=== PATIENT | female | born 1995 | race Caucasian/White ===

== ENCOUNTER 2018-07-02 16:52 | Emergency (ER) | payer SELFPAY ==
[2018-07-02 17:21] LABS: #Basophils 0.1 thou/uL (0.0-0.2); #Eosinphils 0.1 thou/uL (0.0-0.7); #Lymphocytes 2.9 thou/uL (1.20-3.40); #Monocytes 0.3 thou/uL (0.11-0.59); #Neutrophils 4.4 thou/uL (1.40-6.50); %Basophils 0.9 % (0.0-1.0); %Eosinophils 0.8 % (0.0-10.0); %Lymphocytes 37.9 % (21.0-51.0); %Neutrophils 56.4 % (42.0-75.0); Hemoglobin 12.9 g/dL (12.0-16.0); Mean Corpuscular HGB CONC 34.2 g/dL (32.0-36.0); Mean Corpuscular Volume 90.8 fL (78.0-98.0); Mean Platelet Volume 8.3 fL (7.4-10.4); Platelet Count 309 thou/uL (130-400); RBC Distribution Width 12.4 % (11.5-14.5); Red Blood Cell (RBC) Count 4.15 mill/uL (4.20-5.40); White Blood Cell (WBC) Count 7.8 thou/uL (4.8-10.8)
[2018-07-02 17:35] LABS: ALT (SGPT) 15 U/L (8-55); AST (SGOT) 18 U/L (5-34); Albumin 4.8 g/dL (3.5-5.0); Alkaline Phosphatase 57 U/L (40-150); Anion Gap 14 mmol/L (10-20); BUN (Urea Nitrogen) 9 mg/dL (7.0-18.7); Bilirubin, Total 0.6 mg/dL (0.2-1.2); Calc. Creatinine Clearance 0 mL/min (70-130); Calcium 10.1 mg/dL (7.8-10.44); Carbon Dioxide 22 mmol/L (22-29); Chloride 106 mmol/L (98-107); Estimated GFR-MDRD Greater than 90; Glucose 100 mg/dL (70-105); Potassium 3.8 mmol/L (3.5-5.1); Protein, Total 7.8 g/dL (6.0-8.3); Sodium 138 mmol/L (136-145)
--- NOTE | 2018-07-02 19:42 | RAD ---
PORTABLE CHEST: 07/02/18 An AP portable film at 1652 is compared with a 02/08/18 study. There has been no adverse interval tristen nge. The heart is normal in size and the lungs are clear. No infiltrate or effusion was seen. There i s no vascular congestion or edema. IMPRESSION: No acute thoracic finding. POS: HOME
== END 2018-07-02 17:50 | disposition home or self-care (01) ==
LOC: BURERS 16:52
DX: R07.9 Chest pain, unspecified (principal); I10 Essential (primary) hypertension
CPT/HCPCS: 71045; 80053; 84484; 85025; 85379; 93005

== ENCOUNTER 2018-11-19 10:13 | Emergency (ER) | payer SELFPAY ==
[2018-11-19] MEDS ORDERED: Famotidine In NaCl 20 mg/50 ml Premix Bag ONE (10:48)
[2018-11-19] MEDS ORDERED: Mag-Al Plus 1200 MG/1200 MG/120 MG/30 ML UDCUP ONE (10:48)
[2018-11-19] MEDS ORDERED: Lidocaine Viscous Sol 2% 15 ml UD Cup ONE (10:48)
[2018-11-19] MEDS ORDERED: Famotidine 20 MG TAB ONE (10:51)
[2018-11-19 10:52] LABS: #Eosinphils 0.1 thou/uL (0.0-0.7); #Lymphocytes 1.5 thou/uL (1.20-3.40); #Monocytes 0.2 thou/uL (0.11-0.59); #Neutrophils 4.4 thou/uL (1.40-6.50); %Basophils 0.8 % (0.0-1.0); %Eosinophils 0.9 % (0.0-10.0); %Lymphocytes 23.7 % (21.0-51.0); %Monocytes 3.9 % (0.0-10.0); %Neutrophils 70.7 % (42.0-75.0); Hemoglobin 13.6 g/dL (12.0-16.0); Mean Corpuscular HGB CONC 32.1 g/dL (32.0-36.0); Mean Corpuscular Hemoglobin 29.2 pg (27.0-31.0); Mean Platelet Volume 8.2 fL (7.4-10.4); Platelet Count 265 thou/uL (130-400); RBC Distribution Width 12.4 % (11.5-14.5); Red Blood Cell (RBC) Count 4.65 mill/uL (4.20-5.40); White Blood Cell (WBC) Count 6.2 thou/uL (4.8-10.8)
[2018-11-19 11:08] LABS: ALT (SGPT) 13 U/L (8-55); AST (SGOT) 14 U/L (5-34); Albumin 4.9 g/dL (3.5-5.0); Alkaline Phosphatase 55 U/L (40-150); Anion Gap 14 mmol/L (10-20); BUN (Urea Nitrogen) 7 mg/dL (7.0-18.7); Bilirubin, Total 0.8 mg/dL (0.2-1.2); Calc. Creatinine Clearance 0 mL/min (70-130); Carbon Dioxide 24 mmol/L (22-29); Chloride 105 mmol/L (98-107); Estimated GFR-MDRD 80; Globulin 2.8 g/dL (2.4-3.5); Glucose 109 mg/dL (70-105); Lipase 30 U/L (8-78); Potassium 3.8 mmol/L (3.5-5.1); Protein, Total 7.7 g/dL (6.0-8.3); Sodium 139 mmol/L (136-145)
== END 2018-11-19 11:20 | disposition home or self-care (01) ==
LOC: BURERS 10:13
DX: K29.70 Gastritis, unspecified, without bleeding (principal); I10 Essential (primary) hypertension; J45.909 Unspecified asthma, uncomplicated
CPT/HCPCS: 80053; 83690; 84484; 85025; 93005

== ENCOUNTER 2022-04-20 15:35 | Outpatient (CLI) | payer OTHER | END 2022-04-20 15:36 | disposition home or self-care (01) | LOC: BURRAD 15:35 | PROVIDERS: ATTEND Nurse Practitioner Family | DX: S39.012A Strain of muscle, fascia and tendon of lower back, initial encounter (principal) | CPT/HCPCS: 72110 ==

== ENCOUNTER 2023-10-25 18:10 | Emergency (ER) | payer BC ==
[2023-10-25 18:35] LABS: #Basophils 0.1 thou/uL (0.0-0.2); #Eosinphils 0.1 thou/uL (0.0-0.7); #Lymphocytes 1.2 thou/uL (1.20-3.40); #Monocytes 0.3 thou/uL (0.11-0.59); #Neutrophils 3.4 thou/uL (1.40-6.50); %Basophils 1.4 % (0.0-1.0); %Eosinophils 1.3 % (0.0-10.0); %Lymphocytes 24.4 % (21.0-51.0); %Monocytes 5.1 % (0.0-10.0); %Neutrophils 67.8 % (42.0-75.0); Hematocrit 40.9 % (36.0-47.0); Hemoglobin 13.7 g/dL (12.0-16.0); Mean Corpuscular HGB CONC 33.6 g/dL (32.0-36.0); Mean Corpuscular Hemoglobin 30.4 pg (27.0-31.0); Mean Corpuscular Volume 90.5 fl (78.0-98.0); Mean Platelet Volume 8.1 fL (7.4-10.4); Platelet Count 254 10x3/uL (130-400); RBC Distribution Width 11.3 % (11.5-14.5); Red Blood Cell (RBC) Count 4.52 mill/uL (4.20-5.40); White Blood Cell (WBC) Count 5.1 10x3/uL (4.8-10.8)
[2023-10-25] MEDS ORDERED: Metoclopramide HCl 10 MG (2 mL) VIAL ONE (18:40)
[2023-10-25] MEDS ORDERED: diphenhydrAMINE 50 MG/ML VIAL ONE (18:40)
[2023-10-25] MEDS ORDERED: Sodium Chloride 0.9% 100 ML ONE (18:40)
[2023-10-25] MEDS ORDERED: Acetaminophen 500 MG TAB ONE (18:40)
[2023-10-25 18:47] LABS: BHCG - Serum Negative (NEGATIVE); Pregs Control Background? CLEAR/WHITE (CLR/WHITE); Pregs Control Bar Appear? YES (CONTROL BAR)
[2023-10-25 18:59] LABS: ALT (SGPT) 15 U/L (8-55); Albumin 4.9 g/dL (3.5-5.0); Alkaline Phosphatase 50 U/L (40-110); Anion Gap 16 mmol/L (10-20); BUN (Urea Nitrogen) 15 mg/dL (7.0-18.7); Bilirubin, Total 0.7 mg/dL (0.2-1.2); Calc. Creatinine Clearance 0 mL/min (70-130); Calcium 9.7 mg/dL (7.8-10.44); Carbon Dioxide 20 mmol/L (22-29); Chloride 105 mmol/L (98-107); Estimated GFR 92; Globulin 2.7 g/dL (2.4-3.5); Glucose 102 mg/dL (70-105); Potassium 4.5 mmol/L (3.5-5.1); Protein, Total 7.6 g/dL (6.0-8.3); Sodium 136 mmol/L (136-145)
[2023-10-25 19:18] LABS: AST (SGOT) 19 U/L (5-34)
[2023-10-25] MEDS ORDERED: methylPREDNISolone Sod Succ/PF 125 MG/2 ML VIAL ONE (19:41)
[2023-10-25] MEDS ORDERED: Ketorolac Tromethamine 30 MG (1 mL) VIAL ONE (19:41)
== END 2023-10-25 20:35 | disposition home or self-care (01) ==
LOC: BURERS 18:10
DX: R51.9 Headache, unspecified (principal); M13.0 Polyarthritis, unspecified
CPT/HCPCS: 70450; 80053; 84703; 85025; 96361; 96374; 96375; J1200; J1885; J2765; J2930; J3490

== ENCOUNTER 2024-01-09 11:31 | Outpatient (CLI) | payer BC | END 2024-01-09 11:32 | disposition home or self-care (01) | LOC: BURRAD 11:31 | PROVIDERS: ATTEND Internal Medicine Rheumatology | DX: M46.1 Sacroiliitis, not elsewhere classified (principal) | CPT/HCPCS: 72202 ==